=== PATIENT | female | born 1970 | race American Indian/Alaskan Native ===

== ENCOUNTER 2017-07-25 21:47 | Emergency (ER) | payer OTHER ==
[~2017-07-25] VITALS: Ht 160 cm; Wt 75.0 kg
[2017-07-25] MEDS ORDERED: VALIUM5 MG PO (23:23)
[2017-07-25 23:35] VITALS: BP 132/77
== END 2017-07-25 23:56 | disposition home or self-care (01) ==
LOC: EME 21:47
DX: M62.838 Other muscle spasm (principal); F41.9 Anxiety disorder, unspecified; V48.5XXA Car driver injured in noncollision transport accident in traffic accident, initial encounter; Y92.410 Unspecified street and highway as the place of occurrence of the external cause; Z87.891 Personal history of nicotine dependence; Z98.1 Arthrodesis status; Z86.73 Personal history of transient ischemic attack (TIA), and cerebral infarction without residual deficits; Z88.1 Allergy status to other antibiotic agents; Z88.8 Allergy status to other drugs, medicaments and biological substances
CPT/HCPCS: 99281; 99283

== ENCOUNTER 2017-10-09 11:01 | Emergency (ER) | payer OTHER ==
[~2017-10-09] VITALS: Ht 160 cm; Wt 77.2 kg
[~2017-10-09 11:01] MED LIST: VALIUM5 MG PO
[2017-10-09 13:31] VITALS: BP 122/88
== END 2017-10-09 13:32 | disposition home or self-care (01) ==
LOC: EME 11:01
PROC: 2W3QX1Z Immobilization of Right Lower Leg using Splint (ICD-10-PCS; principal; 2017-10-09)
DX: S82.831A Other fracture of upper and lower end of right fibula, initial encounter for closed fracture (principal); G89.29 Other chronic pain; W10.9XXA Fall (on) (from) unspecified stairs and steps, initial encounter; Z88.1 Allergy status to other antibiotic agents; Z88.8 Allergy status to other drugs, medicaments and biological substances
CPT/HCPCS: 73610; 99281; 99283

== ENCOUNTER 2017-12-03 19:18 | Emergency (ER) | payer OTHER ==
[~2017-12-03] VITALS: Ht 160 cm; Wt 72.2 kg
[2017-12-03 20:09] LABS: HEMATOCRIT 43.4 % (36.0-46.0); MCH 31.1 PG (29.0-34.0); MCHC 34.6 G/DL (30.0-36.0); PLATELET COUNT 304 K/uL (156-360); RBC DIS.WIDTH-SD 43.1 % (39-53); RED BLOOD COUNT 4.82 M/uL (3.80-5.20); WHITE BLOOD COUNT 6.1 K/uL (4.1-10.2)
[2017-12-03 20:19] LABS: CHLORIDE 105 mEq/L (99-109); POTASSIUM 3.8 mEq/L (3.7-5.4); SODIUM 142 mEq/L (136-147)
[2017-12-03 20:20] LABS: GLUCOSE 112 mg/dL (70-99)
[2017-12-03 20:24] LABS: CREATININE 0.7 mg/dL (0.6-1.3); GFR ESTIMATE (CALCULATED) > 59 mL/min/
[2017-12-03 20:27] LABS: APPEARANCE SL.HAZY ((CLEAR)); BILIRUBIN NEGATIVE; BLOOD NEGATIVE; COLOR YELLOW ((YELLOW)); GLUCOSE (STRIP) NEGATIVE; KETONES 5; LEUKOCYTES NEGATIVE; NITRITE NEGATIVE; PROTEIN (STRIP) 30; UROBILINOGEN 0.2 MG/DL (0.2-1.0)
[2017-12-03 20:27] LABS: UREA NITROGEN (BUN) 13 mg/dL (9-23)
[2017-12-03 20:34] LABS: BACTERIA NONE SEEN /HPF; EPITHELIAL CELLS RARE /HPF; MUCUS 1+ /LPF; RED BLOOD CELLS 0-5 /HPF (0-5); UCUL ADDED? NO; WHITE BLOOD CELLS 0-5 /HPF (0-5)
[2017-12-03 20:35] LABS: QUANTITATIVE HCG 4.6 MIU/ML
[2017-12-03 21:49] VITALS: BP 122/85
== END 2017-12-03 22:08 | disposition home or self-care (01) ==
LOC: EME 19:18 → RME 19:18
PROVIDERS: Physician Assistant
DX: G43.909 Migraine, unspecified, not intractable, without status migrainosus (principal); Z90.49 Acquired absence of other specified parts of digestive tract
CPT/HCPCS: 80048; 81003; 84702; 85027; 99281; 99284; J1100; J1885; J2765; J7030

== ENCOUNTER 2017-12-15 10:51 | Emergency (ER) | payer OTHER ==
[~2017-12-15] VITALS: Ht 160 cm; Wt 75.0 kg
[2017-12-15 11:03] VITALS: BP 122/90
[2017-12-15] MEDS ORDERED: PERCOCET 5/31 TABLET PO (12:37)
[2017-12-15] MEDS ORDERED: MOTRIN600 MG PO (12:37)
== END 2017-12-15 12:56 | disposition home or self-care (01) ==
LOC: EME 10:51
PROC: 2W3QX1Z Immobilization of Right Lower Leg using Splint (ICD-10-PCS; principal; 2017-12-15)
DX: S90.31XA Contusion of right foot, initial encounter (principal); W22.8XXA Striking against or struck by other objects, initial encounter; Y93.E1 Activity, personal bathing and showering; Z88.1 Allergy status to other antibiotic agents
CPT/HCPCS: 73630; 99281; 99285

== ENCOUNTER 2018-02-10 17:38 | Emergency (ER) | payer OTHER ==
[~2018-02-10] VITALS: Ht 160 cm; Wt 75.2 kg
[~2018-02-10 17:38] MED LIST changes: +MOTRIN600 MG PO; +PERCOCET 5/31 TABLET PO
[2018-02-10] MEDS ORDERED: AUGMENTIN875 MG PO (18:15)
[2018-02-10 18:28] VITALS: BP 125/82
== END 2018-02-10 18:29 | disposition home or self-care (01) ==
LOC: EME 17:38
PROC: 3E0234Z Introduction of Serum, Toxoid and Vaccine into Muscle, Percutaneous Approach (ICD-10-PCS; principal; 2018-02-10)
DX: S01.83XA Puncture wound without foreign body of other part of head, initial encounter (principal); W54.0XXA Bitten by dog, initial encounter; Z23 Encounter for immunization; Z88.8 Allergy status to other drugs, medicaments and biological substances; Z88.1 Allergy status to other antibiotic agents
CPT/HCPCS: 99281; 99284